=== PATIENT | male | born 2000 | race Two or more races ===

== ENCOUNTER 2023-10-08 06:30 | Emergency (ER) | payer SELFPAY ==
[~2023-10-08] VITALS: Ht 167.6 cm; Wt 84.1 kg
[2023-10-08 07:18] VITALS: BP 140/107; PULSE 113; RESP 24; O2SAT 96
[2023-10-08] MEDS ORDERED: CEPH500C PO (07:23)
[2023-10-08] MEDS ORDERED: IBUP-1456 PO (07:23)
[2023-10-08] MEDS ORDERED: IBUPROFEN 800 MG TAB PO ONE (07:30)
[2023-10-08] MEDS ORDERED: cefTRIAXone SOD 1,000 MG VL IM ONE (07:30)
[2023-10-08 07:31] VITALS: TEMP 98.5
== END 2023-10-08 07:53 | disposition home or self-care (01) ==
LOC: ER 06:30
DX: L08.89 Other specified local infections of the skin and subcutaneous tissue (principal); R23.8 Other skin changes; Z79.899 Other long term (current) drug therapy
CPT/HCPCS: 96372; 99283; J0696